=== PATIENT | male | born 1990 | race Caucasian/White ===

== ENCOUNTER 2017-03-24 19:58 | Emergency (ER) | payer SELFPAY ==
[~2017-03-24] VITALS: Ht 180.3 cm; Wt 71.5 kg
[~2017-03-24 19:58] MED LIST: CLONIDINE HCL0.1 MG PO; DEPAKOTE500 MG PO; KEFLEX500 MG PO; MOTRIN600 MG PO; NAPROSYN500 MG PO; SEROQUEL XR200 MG PO; SEROQUEL400 MG PO; TRAMADOL HCL50 MG PO; ULTRAM50 MG PO; VYVANSE50 MG PO
[2017-03-24] MEDS ORDERED: CLEOCIN300 MG PO (21:35)
[2017-03-24 21:55] VITALS: BP 123/69
== END 2017-03-24 21:55 | disposition home or self-care (01) ==
LOC: EME 19:58
PROC: 0C96XZZ Drainage of Lower Gingiva, External Approach (ICD-10-PCS; principal; 2017-03-24)
DX: K04.7 Periapical abscess without sinus (principal); F17.200 Nicotine dependence, unspecified, uncomplicated
CPT/HCPCS: 99281; 99283

== ENCOUNTER 2017-05-25 16:42 | Emergency (ER) | payer SELFPAY ==
[~2017-05-25] VITALS: Ht 180.3 cm; Wt 72.1 kg
[~2017-05-25 16:42] MED LIST changes: +CLEOCIN300 MG PO
[2017-05-25] MEDS ORDERED: CLEOCIN300 MG PO (17:12)
[2017-05-25] MEDS ORDERED: ZOFRAN ODT4 MG PO (17:12)
[2017-05-25 17:30] VITALS: BP 0/0
== END 2017-05-25 18:31 | disposition home or self-care (01) ==
LOC: EME 16:42
DX: K02.9 Dental caries, unspecified (principal); K03.81 Cracked tooth; Z88.0 Allergy status to penicillin; F17.200 Nicotine dependence, unspecified, uncomplicated
CPT/HCPCS: 99281; 99284

== ENCOUNTER 2018-02-06 22:35 | Emergency (ER) | payer SELFPAY ==
[~2018-02-06] VITALS: Ht 180.3 cm; Wt 68.8 kg
[~2018-02-06 22:35] MED LIST changes: +ZOFRAN ODT4 MG PO
[2018-02-06 23:33] LABS: HEMATOCRIT 44.7 % (38.0-50.0); HEMOGLOBIN 16.2 G/DL (12.5-16.6); MCH 30.5 PG (29.0-34.0); MCHC 36.2 G/DL (30.0-36.0); MCV 84.2 FL (86-99); PLATELET COUNT 189 K/uL (156-360); RBC DIS.WIDTH-CV 11.8 % (11.8-14.6); RBC DIS.WIDTH-SD 35.8 % (39-53); RED BLOOD COUNT 5.31 M/uL (4.00-5.50); WHITE BLOOD COUNT 9.4 K/uL (4.1-10.2)
[2018-02-06 23:42] LABS: ALBUMIN 4.8 g/dL (3.2-4.8); CHLORIDE 106 mEq/L (99-109); POTASSIUM 3.6 mEq/L (3.7-5.4); SODIUM 139 mEq/L (136-147)
[2018-02-06 23:44] LABS: GLUCOSE 95 mg/dL (70-99)
[2018-02-06 23:45] LABS: TOTAL PROTEIN 7.3 g/dL (6.4-8.3)
[2018-02-06 23:46] LABS: TOTAL BILIRUBIN 0.7 mg/dL (0.0-1.0)
[2018-02-06 23:47] LABS: SERUM ETHYL ALCOHOL < 10 mg/dL
[2018-02-06 23:48] LABS: ALKALINE PHOSPHATASE 70 IU/L (3-129); CREATININE 0.9 mg/dL (0.6-1.3); GFR ESTIMATE (CALCULATED) > 59 mL/min/ (58.99-99999)
[2018-02-06 23:49] LABS: UREA NITROGEN (BUN) 12 mg/dL (9-23)
[2018-02-06 23:50] LABS: AST (GOT) 14 IU/L (2-34)
[2018-02-06 23:51] LABS: ALT (GPT) 6 IU/L (3-49); LIPASE 13 U/L (1.0-51.0)
[2018-02-06 23:57] LABS: TROP-I INTERPRETATION NEGATIVE; TROPONIN-I < 0.01 ng/mL (0.0-0.30)
[2018-02-07 01:12] LABS: PHENCYCLIDINE NEGATIVE (25 ng/mL); THC CANNABINOIDS NEGATIVE (50 ng/mL)
[2018-02-07 01:13] LABS: AMPHETAMINE NEGATIVE (500 ng/mL); BARBITURATES NEGATIVE (200 ng/mL); BENZODIAZEPINES NEGATIVE (150 ng/mL); BUPRENORPHINE NEGATIVE (10 ng/mL); COCAINE NEGATIVE (150 ng/mL); METHADONE NEGATIVE (200 ng/mL); METHAMPHETAMINE NEGATIVE (500 ng/mL); OPIATES (MORPHINE) NEGATIVE (100 ng/mL); OXYCODONE NEGATIVE (100 ng/mL); PROPOXYPHENE NEGATIVE (300 ng/mL); TRICYCLIC ANTIDEPRESSANTS NEGATIVE (300 ng/mL)
[2018-02-07] MEDS ORDERED: ATARAX,VISTARIL25 MG PO (01:50)
[2018-02-07 02:08] VITALS: BP 120/75
== END 2018-02-07 02:09 | disposition home or self-care (01) ==
LOC: EME → EDBD 22:35 → EME 22:35
PROVIDERS: Emergency Medicine
DX: R55 Syncope and collapse (principal); F32.9 Major depressive disorder, single episode, unspecified; F17.200 Nicotine dependence, unspecified, uncomplicated; Z88.0 Allergy status to penicillin; Z88.5 Allergy status to narcotic agent
CPT/HCPCS: 71046; 80053; 83690; 84484; 85027; 93005; 99281; 99284; G0480; J7030